=== PATIENT | male | born 1980 | race African-American/Black ===

== ENCOUNTER 2022-01-27 05:25 | Emergency (ER) | payer SELFPAY ==
[2022-01-27] MEDS ORDERED: Ketorolac 30 MG/ML SDV IM ONE (05:44)
[2022-01-27] MEDS ORDERED: Proparacaine 0.5% Ophth Soln 15 ML Bottle ONE (07:53)
[2022-01-27] MEDS ORDERED: predniSONE 20 MG Tab PO ONE (08:16)
== END 2022-01-27 08:54 ==
LOC: JD.ED 05:25
DX: M53.3 Sacrococcygeal disorders, not elsewhere classified (principal); M76.31 Iliotibial band syndrome, right leg; Z88.1 Allergy status to other antibiotic agents; Z88.0 Allergy status to penicillin
CPT/HCPCS: 36415; 72100; 73502; 85025; 86140; 96372; 99284; J1885